=== PATIENT | male | born 1940 | race Caucasian/White ===

== ENCOUNTER 2023-10-28 11:29 | Emergency (ER) | payer MEDICARE, SELFPAY ==
[2023-10-28 11:31] VITALS: BP 155/88
[2023-10-28 11:40] VITALS: BP 165/88
[2023-10-28 12:00] VITALS: BP 152/80
--- NOTE | 2023-10-28 12:19 | ED.GENMED ---
History of Present Illness
General
Chief Complaint: Fall
Source: patient
Exam Limitations: none
Time Seen by Provider: 10/28/23 11:51
Travel History
Have you had any contact with someone who has COVID-19?: No
Do you have any symptoms of coronavirus? Fever > 100 degrees, chills, cough, shortness of breath, sore throat, loss of taste or smell, muscle aches, or headache?: No
History of Present Illness
History of Present Illness:
See MDM
Past History
Past History
ED Past Medical History: Arrthythmia (atrial fib,, SVT), Asthma, Cancer (Prostate CA, Skin ), GERD, Valvular disease and Other (Cellulitis, hypotension. Parkinson's disease, PNA ,Sleep apnea, )
ED Past Surgical History: None, Cardiac (Ablation), Orthopedic (Hip replacement X2 right, Left meniscus repair), Tonsilectomy, Urological (Vasectomy) and Other (Hernia repair, Cataracts, Lymph nodes removed left arm)
Patient has exhibited threatening behavior?: No
Social History
Tobacco: Non-smoker
Alcohol: None
Drug: None
Personal:
Living: fci ([place])
Employment: Retired
Phy Exam
Physical Exam
Physical Exam:
See MDM
Course
Vital Signs
Initial and Last Documented VS:
Initial Vital Signs
Temp Pulse Resp BP Pulse Ox
97.7 F 63 18 155/88 96
10/28/23 11:31 10/28/23 11:31 10/28/23 11:31 10/28/23 11:31 10/28/23 11:31
Last Documented Vital Signs
Temp Pulse Resp BP Pulse Ox
97.7 F 63 18 155/88 96
10/28/23 11:31 10/28/23 11:31 10/28/23 11:31 10/28/23 11:31 10/28/23 11:31
MDM/Problems Addressed
Differential Diagnosis Includes:
HPI and MDM Narrative:
83-year-old male presenting for evaluation of a fall. Patient states he did not fall. Patient states he slipped and slid down the wall. This occurred yesterday. Denies any trauma or injury. He states the doctor sent him into the emergency
department for evaluation.
Patient offers no complaints. No bony tenderness on exam. Patient appears to be at his baseline mental status. He is pleasant, cooperative and conversing without issues. I discussed that his doctor likely saw him in for blood work and CT head.
Patient acknowledges this but states 'this would be a waste of resources, time and money '
Physical exam
General: Well appearing and non-toxic
HEENT: protecting airway
Neck: supple
CV: No evidence of cyanosis
Resp: No accessory muscle use
Abd: Non-distended
Extremities: No deformities. Moving all 4 extremities. No bony tenderness. No hip tenderness
Neuro: alert
Psych: Normal affect
Skin: Intact
Problems Addressed including Acute and Chronic Conditions affecting care:
1. Fall
Acuity: acute
Prognosis: stable
Details: No evidence of trauma. Patient does not want any further testing done
Updates
Differential Diagnosis (but not limited to): Contusion, intracranial hemorrhage, dehydration, UTI
Testing considered: CT head and blood work
Drug therapy (if applicable): OTC meds, please see d/c instruction regarding Rx drugs
Amount and/or Complexity of Data Reviewed
Clinical info obtained from: Patient
External data reviewed: N/A
Labs I independently reviewed (but not limited to): N/A
Radiology: N/A
Pulse Ox: not hypoxic
EKG independently reviewed: N/A
Manager Meat: N/A
Critical Care: N/A
Risk of Complication:
Social Determinants of health: Good social support
Discussed with other providers: N/A
Escalation of Care includes Admit/Obs: After being observed in the Emergency Department, pt stable for discharge.
Occasional wrong word or 'sound a like' substitutions may have occurred due to the inherent limitations of voice recognition software. Read the chart carefully and recognize, using context, where substitutions have occurred.
*Critical Care Note
Total Time (30-74mins, 75-104mins- exclusive of procedures): Not Applicable
ED Attending Note
-
Portions of this chart may have been created with voice recognition software.� Occasional wrong word or��sound alike� substitutions may have occurred due to the inherent limitations of voice recognition software.
Discharge Plan
Departure
Patient Disposition: Home (Routine Discharge)
Date of Disposition: 10/28/23
Time of Disposition: 12:19
Patient with high blood pressure during this ER visit?: Yes
Discharge Problem:
Fall
Instructions: Preventing falls in adults, BLOOD PRESSURE
Prescriptions:
No Action
leuprolide 1 MG/0.2 ML kit
1 mg SC Q4M
ascorbic acid (vitamin C) [Vitamin C] 500 MG tablet
1,000 mg PO DAILY
Xarelto 20 MG tablet
20 mg PO QPM
midodrine 5 MG tablet
2.5 mg PO BIDPRN PRN (Reason: low bp pressure)
cholecalciferol (vitamin D3) [Vitamin D3] 400 UNITS tablet
400 units PO DAILY
Saccharomyces boulardii 250 MG capsule
250 mg PO WEEKLY
zinc gluconate 30 MG tablet
30 mg PO DAILY
multivitamin with folic acid [Tab-A-Jasvir] 1 TABLET tablet
1 tab PO DAILY
vitamin B complex-folic acid 0.4 MG tablet
0.4 mg PO DAILY
oxybutynin chloride 10 mg tablet extended release 24hr
10 mg PO [id number]
Patient Comments:
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
carbidopa-levodopa 25-100 mg tablet
1 tab PO BID@0800,1500
red yeast rice 600 mg Capsule
600 mg PO DAILY
Gocovri 137 mg capsule,extended release 24hr
137 mg PO HS
Ongentys 50 mg capsule
50 mg PO DAILY
amoxicillin 250 mg/5 mL Suspension For Reconstitution
500 mg PO TID Qty: 10 0RF
furosemide [Lasix] 40 mg tablet
40 mg PO DAILY 7 Days Qty: 7 0RF
Rx Instructions:
Take in the morning
Referrals:
Fabian Harp MD [Family Provider] -
Activity Restrictions/Additional Instructions:
Please return for any worsening symptoms.
You may return at any time if you have further concerns.
Please follow up with your doctor at the first available appointment, preferably this week.
Thank you for choosing [facility].
Interventions
Interventions:
*Risk Screen - Suicide Last Done: 10/28/23 11:40
*General Assessment Last Done: 10/28/23 11:31
*Neglect/Abuse Screening Last Done: 10/28/23 11:40
*ED COVID-19 Vaccine History Last Done: 10/28/23 11:31
[2023-10-28 13:00] VITALS: BP 165/88
[2023-10-28 13:16] VITALS: BP 165/88
== END 2023-10-28 14:29 | disposition home or self-care (01) ==
LOC: EMR 11:29
PROVIDERS: EMERGENCY PHYSICIAN Student in an Organized Health Care Education/Training Program; FAMILY PHYSICIAN Internal Medicine Geriatric Medicine
DX: Z04.89 Encounter for examination and observation for other specified reasons (principal); W19.XXXA Unspecified fall, initial encounter; I48.91 Unspecified atrial fibrillation; I47.10 Supraventricular tachycardia, unspecified; J45.909 Unspecified asthma, uncomplicated; K21.9 Gastro-esophageal reflux disease without esophagitis; I38 Endocarditis, valve unspecified; G20.A1 Parkinson's disease without dyskinesia, without mention of fluctuations; G47.30 Sleep apnea, unspecified; Z85.46 Personal history of malignant neoplasm of prostate
CPT/HCPCS: 99282

== ENCOUNTER → 2023-10-29 10:58 | Outpatient (REF) | payer MEDICARE, SELFPAY ==
[2023-10-29 11:32] LABS: % Basophils 0.4 % (0-2); % Eosinophils 6.2 % (0-6); % Immature Granulocytes 0.5 % (0-0.5); % Lymphocytes 22.3 % (20.5-51.1); % Monocytes 13.1 % (1.7-9.3); % Neutrophils 57.5 % (42.2-75.2); Absolute Eosinophils 0.5 10^3/uL (0-0.7); Absolute Lymphocytes 1.7 10^3/uL (1.2-3.4); Absolute Neutrophils 4.4 10^3/uL (1.4-6.5); Hematocrit 35.5 % (39.0-52.0); Hemoglobin 11.8 g/dL (13.0-18.0); Mean Corp Hgb Conc. 33.2 g/dL (33.0-37.0); Mean Corpuscular Hgb 27.8 pg (27.0-31.0); Mean Corpuscular Volume 83.7 fL (80.0-94.0); Mean Platelet Volume 10.5 fL (7.4-10.4); Nucleated Red Blood Cells % 0 % (-); Platelet Count 298 10^3/uL (130-400); Red Blood Cell Count 4.24 10^6/uL (4.70-6.10); Red Cell Dist. Width 15.9 % (11.5-14.5); White Blood Cell Count 7.6 10^3/uL (4.8-10.8)
[2023-10-29 11:42] LABS: ALT (SGPT) 22 U/L (0-50); AST (SGOT) 12 U/L (17-59); Albumin 3.8 g/dl (3.5-5.0); Alkaline Phosphatase 115 U/L (38-126); Blood Urea Nitrogen 22 mg/dl (9-20); Calcium 9.4 mg/dl (8.4-10.2); Carbon Dioxide 26 mmol/L (22-30); Chloride 106 mmol/L (98-107); Glucose 89 mg/dl (70-99); Iron 67 ug/dl (49-181); Sodium 135 mmol/L (135-145); Total Bilirubin 0.6 mg/dl (0.2-1.3); Total Protein 6.4 g/dl (6.3-8.2); eGFR > 60.00
[2023-10-29 11:52] LABS: Percent Saturation 20 % (20-50); Total Iron Binding Capacity 335 ug/dl (261-462)
[2023-10-29 12:13] LABS: PSA, Total - Screen 3.15 ng/ml (0.0-4.0)
[2023-10-29 12:17] LABS: Ferritin 11.9 ng/ml (17.9-464.0)
[2023-10-29 12:49] LABS: Folate > 20.0 ng/ml (2.76-20); Vitamin B12 641 pg/ml (239-931)
== END ==
LOC: OLABWHC 10:58
PROVIDERS: ATTENDING PHYSICIAN Internal Medicine Gastroenterology; FAMILY PHYSICIAN Internal Medicine Geriatric Medicine
DX: D50.0 Iron deficiency anemia secondary to blood loss (chronic) (principal)
CPT/HCPCS: 36415; 80053; 82607; 82728; 82746; 83540; 83550; 85025; G0103

== ENCOUNTER → 2023-11-01 09:24 | Outpatient (REF) | payer MEDICARE, SELFPAY ==
[2023-11-01 11:09] LABS: PSA, Total - Diagnostic 2.84 ng/ml (0.0-4.0)
== END ==
LOC: OLABWPC 09:24
PROVIDERS: ATTENDING PHYSICIAN Internal Medicine Geriatric Medicine
DX: C61 Malignant neoplasm of prostate (principal)
CPT/HCPCS: 36415; 84153

== ENCOUNTER 2023-11-17 16:55 | Emergency (ER) | payer MEDICARE, SELFPAY ==
[2023-11-17] VITALS (10 sets, daily range): BP systolic 146–200; BP diastolic 85–105; BMI 26.2
[2023-11-17 17:18] LABS: % Basophils 0.3 % (0-2); % Eosinophils 4.5 % (0-6); % Immature Granulocytes 0.4 % (0-0.5); % Lymphocytes 21.2 % (20.5-51.1); % Monocytes 12.7 % (1.7-9.3); % Neutrophils 60.9 % (42.2-75.2); Absolute Eosinophils 0.4 10^3/uL (0-0.7); Absolute Monocytes 1.2 10^3/uL (0.1-0.6); Absolute Neutrophils 5.7 10^3/uL (1.4-6.5); Hematocrit 38.6 % (39.0-52.0); Hemoglobin 12.7 g/dL (13.0-18.0); Mean Corp Hgb Conc. 32.9 g/dL (33.0-37.0); Mean Corpuscular Hgb 28.4 pg (27.0-31.0); Mean Corpuscular Volume 86.4 fL (80.0-94.0); Mean Platelet Volume 9.5 fL (7.4-10.4); Nucleated Red Blood Cells % 0 % (-); Platelet Count 261 10^3/uL (130-400); Red Blood Cell Count 4.47 10^6/uL (4.70-6.10); White Blood Cell Count 9.3 10^3/uL (4.8-10.8)
[2023-11-17 17:45] LABS: ALT (SGPT) 13 U/L (0-50); AST (SGOT) 13 U/L (17-59); Albumin 3.9 g/dl (3.5-5.0); Alkaline Phosphatase 122 U/L (38-126); Blood Urea Nitrogen 29 mg/dl (9-20); Carbon Dioxide 26 mmol/L (22-30); Chloride 102 mmol/L (98-107); Estimated Creatinine Clearance 69 ml/min; Glucose 98 mg/dl (70-99); Potassium 4.3 mmol/L (3.5-5.1); Sodium 135 mmol/L (135-145); Total Bilirubin 0.5 mg/dl (0.2-1.3); Total Protein 6.7 g/dl (6.3-8.2); eGFR > 60.00
--- NOTE | 2023-11-17 19:49 | ED.GENMED ---
History of Present Illness
General
Chief Complaint: Blood Pressure Problem
Source: patient
Exam Limitations: none
Time Seen by Provider: 11/17/23 19:15
Nursing documentation reviewed up to this point in time: agreed with
Travel History
Have you had any contact with someone who has COVID-19?: No
Do you have any symptoms of coronavirus? Fever > 100 degrees, chills, cough, shortness of breath, sore throat, loss of taste or smell, muscle aches, or headache?: No
History of Present Illness
History of Present Illness:
Patient with history of hypotension on midodrine, presents to ED from long term secondary to sudden onset of chest pain around 3:30 PM this afternoon. Chest pain described as achy, across his chest, without any alleviating or exacerbating
factors. Patient states that chest pain started approxi-1 hour, with spontaneous resolution. Since then, patient has not had recurrent chest pain. Interestingly, patient takes midodrine secondary to hypotension, was noted to have elevated blood
pressure by paramedics when arrived at scene. Patient denies associated shortness of breath or nausea. Denies diaphoresis. Denies leg pain or swelling. Denies back pain. Denies recent travel or surgery. Patient has had history of atrial
fibrillation in the past. However, patient current does not take any blood thinning medications.
Past History
Past History
ED Past Medical History: Arrthythmia (atrial fib,, SVT), Asthma, Cancer (Prostate CA, Skin ), GERD, Valvular disease and Other (Cellulitis, hypotension. Parkinson's disease, PNA ,Sleep apnea, )
ED Past Surgical History: None, Cardiac (Ablation), Orthopedic (Hip replacement X2 right, Left meniscus repair), Tonsilectomy, Urological (Vasectomy) and Other (Hernia repair, Cataracts, Lymph nodes removed left arm)
Patient has exhibited threatening behavior?: No
Social History
Tobacco: Non-smoker
Alcohol: None
Drug: None
Personal:
Living: long term ([place])
Employment: Retired
Review of Systems
Review of Systems
Allergies reviewed?: Yes
All Other Systems: ROS reviewed and negative except as documented in HPI and ROS
Constitutional: Reports no symptoms
EENT: Reports no symptoms
Respiratory: Reports no symptoms; Denies trouble breathing
Cardiac: Reports chest pain; Denies diaphoresis, palpitations or syncope
ABD/GI: Reports no symptoms; Denies nausea
Musculoskeletal: Reports no symptoms
Skin: Reports no symptoms
Neurological: Reports no symptoms; Denies dizzy, headache or weakness
Phy Exam
Physical Exam
Physical Exam:
Physical Exam
General: no apparent distress, not acutely ill. afebrile. hypertensive.
Head: nc/at. eomi
Neck: supple. no meningeal signs.
Heart: s1/s2 regular rate and rhythm, no murmur. equal radial pulses.
Lungs: no acute respiratory distress. clear bilaterally
Abdomen: normal bowel sounds. not tender.
Neuro: alert and oriented. no focal neurological deficits
Skin: no rash
Psychiatric: well kept. interactive and cooperative
Extremities: no edema. no calf tenderness.
Scores
Heart Score for Chest Pain Patients
STEMI patient?: No
History: Slightly or Non-Suspicious
ECG: Normal
Age: >/= 65 years
Risk Factors: No Risk Factors
Troponin: </= Normal Limit
Heart Score for Chest Pain Patients: 2
Heart Score Risk: 2.5% MACE over next 6 weeks
Course
Orders/Labs/Results
Orders:
Orders
11/17/23 17:02
EKG [Electrocardiogram (*1)] Urgent
Reason for Study: CAD
EKG- Treatment ONCE
11/17/23 17:10
Complete Blood Count/With Diff Urgent
Comprehensive Metabolic Panel Urgent
Creatine Phosphokinase Urgent
Comment: ADD ON
Magnesium Urgent
Comment: ADD ONM
NT-proBNP Urgent
Comment: ADD ON
11/17/23 19:38
CR Chest - 2 Views Urgent
Comment:
Reason For Exam: chest pain
11/17/23 19:42
Troponin I Urgent
11/17/23 22:04
Electrocardiogram (*1) Urgent
Reason for Study: Chest Pain
EKG- Treatment ONCE
11/17/23 22:34
Troponin I Urgent
Abnormal Lab Results
11/17/23
17:10
RBC 4.47 L 10^6/uL
(4.70-6.10)
Hgb 12.7 L g/dL
(13.0-18.0)
Hct 38.6 L %
(39.0-52.0)
MCHC 32.9 L g/dL
(33.0-37.0)
RDW 15.0 H %
(11.5-14.5)
Absolute Monos (auto) 1.2 H 10^3/uL
(0.1-0.6)
Monocytes % 12.7 H %
(1.7-9.3)
BUN 29 H mg/dl
(9-20)
AST 13 L U/L
(17-59)
Creatine Kinase 53 L U/L
(55-170)
11/17/23 17:10
11/17/23 17:10
Vital Signs
Initial and Last Documented VS:
Initial Vital Signs
BP
164/85
11/17/23 16:57
Last Documented Vital Signs
Temp Pulse Resp BP Pulse Ox
97.9 F 58 16 146/87 98
11/17/23 16:58 11/17/23 23:45 11/17/23 23:45 11/17/23 23:00 11/17/23 23:45
MDM/Problems Addressed
MDM/Problems Addressed:
Per daughter, due to patient's parkinson's disease, he has had transient episodes of hypertension in the patient.
Patient remains chest pain-free during extended course of observation ED, along with unremarkable workup, including blood work, EKG, and chest x-ray. As patient with typically low blood pressure, it is quite possible that sudden rise in his blood
pressure today may have contributed to his chest pain symptoms. However, patient is without any risk factors for ACS, nor symptoms consistent with ACS. As such, patient will be discharged home. 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
Marylu, as an outpatient. Advised to return to ED with worsening symptoms.
*EKG
Interpreted by ED Provider?: Yes
EKG Intrepretation Date: 11/17/23
Heart Rate: 70
Rate: normal
Rhythm: sinus
[place]: left axis deviation
Interval: first degree heart block
QRS Pattern: normal QRS
*Critical Care Note
Total Time (30-74mins, 75-104mins- exclusive of procedures): Not Applicable
ED Attending Note
-
Portions of this chart may have been created with voice recognition software.� Occasional wrong word or��sound alike� substitutions may have occurred due to the inherent limitations of voice recognition software.
Discharge Plan
Departure
Patient Disposition: Home (Routine Discharge)
Date of Disposition: 11/17/23
Time of Disposition: 23:31
Patient with high blood pressure during this ER visit?: Yes
Discharge Problem:
Chest pain
Instructions: Chest Pain (DC)
Prescriptions:
No Action
ascorbic acid (vitamin C) [Vitamin C] 500 MG tablet
1,000 mg PO DAILY
Saccharomyces boulardii 250 MG capsule
250 mg PO DAILY
zinc gluconate 30 MG tablet
30 mg PO DAILY
multivitamin with folic acid [Tab-A-Jasvir] 1 TABLET tablet
1 tab PO DAILY
carbidopa-levodopa 25-100 mg tablet
1 tab PO BID@1200,1600
red yeast rice 600 mg Capsule
600 mg PO DAILY
Gocovri 137 mg capsule,extended release 24hr
137 mg PO HS
Ongentys 50 mg capsule
50 mg PO DAILY
acetaminophen 325 mg Tablet
650 mg PO Q6H PRN (Reason: mild pain/temp>100F)
aspirin 81 mg Tablet,Delayed Release (Dr/Ec)
81 mg PO DAILY
methenamine hippurate 1 gram Tablet
1 g PO BID
magnesium hydroxide [Milk of Magnesia] 400 mg/5 mL Suspension
30 ml PO DAILY PRN (Reason: if no bm x 2 days)
bisacodyl [Dulcolax (bisacodyl)] 10 mg Suppository
10 mg NE DAILY PRN (Reason: if no bm x 3 days)
Fleet Enema 19-7 gram/118 mL Enema
118 ml NE DAILY PRN (Reason: if no bm x 4 days)
vitamin B complex [B-50 Complex] Tablet
1 tab PO DAILY
magnesium 250 mg Tablet
250 mg PO DAILY
carbidopa-levodopa 25-100 mg tablet
2 tab PO DAILY
doxycycline hyclate 100 mg tablet
100 mg PO HS
midodrine 10 mg Tablet
5 mg PO DAILY@1400
Rx Instructions:
afternoon
midodrine 10 mg Tablet
5 mg PO QPM
Rx Instructions:
*HOLD FOR SBP OVER 136*
cholecalciferol (vitamin D3) [Vitamin D3] 25 mcg (1,000 unit) Tablet
25 mcg PO DAILY
Misc Natural Products
1 cap PO DAILY
Rx Instructions:
Mycobotanicals brain
Ubiquinol
100 mg PO DAILY@1400
Rx Instructions:
afternoon
Referrals:
Fabian Harp MD [Family Provider] -
Danielle Valero DO [Active] -
Activity Restrictions/Additional Instructions:
As discussed, please follow-up with your primary care physician and/or derrick boat leverman for further evaluation and treatment. Please return to ED with recurrent chest pain.
Interventions
Interventions:
*Risk Screen - Suicide Last Done: 11/17/23 17:00
*General Assessment Last Done: 11/17/23 17:00
*Neglect/Abuse Screening Last Done: 11/17/23 17:00
ED- Fall Risk Assessment Last Done: 11/17/23 17:00
*ED COVID-19 Vaccine History Last Done: 11/17/23 16:59
*Nursing Disposition Last Done: 11/18/23 00:02
ED- Cardiac Assessment Last Done: 11/17/23 18:07
ED- Neurological Assessment Last Done: 11/17/23 18:07
ED- Pulmonary Assessment Last Done: 11/17/23 18:07
Discharge Date and Time
Discharge Date/Time: 11/18/23 00:03
[2023-11-17 20:21] LABS: Troponin I < 0.012 ng/ml
[2023-11-17 22:40] LABS: NT-proBNP 231 pg/ml
[2023-11-17 22:51] LABS: Creatine Phosphokinase 53 U/L (55-170)
[2023-11-17 23:03] LABS: Troponin I < 0.012 ng/ml
== END 2023-11-18 00:03 | disposition home or self-care (01) ==
LOC: EMR 16:55
PROVIDERS: Emergency Medicine; EMERGENCY PHYSICIAN Emergency Medicine; FAMILY PHYSICIAN Internal Medicine Geriatric Medicine
DX: R07.9 Chest pain, unspecified (principal); R03.0 Elevated blood-pressure reading, without diagnosis of hypertension; G20.A1 Parkinson's disease without dyskinesia, without mention of fluctuations
CPT/HCPCS: 99285; 71046; 80053; 82550; 83735; 83880; 84484; 85025; 93005

== ENCOUNTER → 2024-01-05 09:42 | Outpatient (REF) | payer MEDICARE, SELFPAY ==
[2024-01-05 10:57] LABS: Urine Albumin Negative (Neg - Trace); Urine Bilirubin Negative (Negative); Urine Character Clear (Clear); Urine Color Yellow; Urine Glucose Negative (Negative); Urine Ketone Negative (Negative); Urine Leukocyte Negative (Negative); Urine Nitrite Negative (Negative); Urine Occult Blood Negative (Negative); Urine Specific Gravity 1.015 (<1.030); Urine Urobilinogen Negative (Neg - 1+); Urine pH 6.5 (5.0-9.0)
== END ==
LOC: OLABWIL 09:42
PROVIDERS: ATTENDING PHYSICIAN Internal Medicine Geriatric Medicine
DX: R41.82 Altered mental status, unspecified (principal)
CPT/HCPCS: 81003

== ENCOUNTER 2024-02-06 10:28 | Emergency (ER) | payer MEDICARE, SELFPAY ==
[2024-02-06] VITALS (9 sets, daily range): BP systolic 117–206; BP diastolic 75–104; BMI 26.9
--- NOTE | 2024-02-06 10:45 | ED.GENMED ---
History of Present Illness
General
Chief Complaint: Back Pain
Source: patient
Time Seen by Provider: 02/06/24 10:34
Nursing documentation reviewed up to this point in time: agreed with
History of Present Illness
History of Present Illness:
Patient is an 83-year-old male from [facility] living with past medical history of hypertension, Parkinson's prostate cancer A-fib who presents to the ER for evaluation. Patient reports he urinated 5 times throughout the night and then went
in his depend but urinated through his depends into the bed. He woke up with a wet bed and order that he did not sleep in the bed he slept on the floor. This morning he called staff and they assisted him up. He reports he has been urinating more
frequently he had an outpatient urine culture and UA done which was negative but he continues to urinate frequently. He has been drinking however a lot of water because they told him to do so. He has no other complaints. Triage report initially
noted the patient complained of low back pain but patient denies any pain.
Patient had no actual fall/trauma. He denies any chest pain shortness of breath abdominal nausea vomiting fever chills
Past History
Past History
ED Past Medical History: Arrthythmia (atrial fib,, SVT), Asthma, Cancer (Prostate CA, Skin ), GERD, Valvular disease and Other (Cellulitis, hypotension. Parkinson's disease, PNA ,Sleep apnea, )
ED Past Surgical History: None, Cardiac (Ablation), Orthopedic (Hip replacement X2 right, Left meniscus repair), Tonsilectomy, Urological (Vasectomy) and Other (Hernia repair, Cataracts, Lymph nodes removed left arm)
Patient has exhibited threatening behavior?: No
Social History
Tobacco: Non-smoker
Alcohol: None
Drug: None
Personal:
Living: [facility] ([place])
Employment: Retired
Review of Systems
Review of Systems
Allergies reviewed?: Yes
All Other Systems: ROS reviewed and negative except as documented in HPI and ROS
Constitutional: Reports no symptoms; Denies fever, fatigue or chills
Respiratory: Reports no symptoms
Cardiac: Reports no symptoms
ABD/GI: Reports no symptoms; Denies abdominal pain, nausea, vomiting or diarrhea
: Reports frequency
Musculoskeletal: Reports no symptoms
Skin: Reports no symptoms
Neurological: Reports no symptoms
Psychiatric: Reports no symptoms
Phy Exam
General Physical Exam
General Presentation: no apparent distress
General age: appears stated age
General Skin: warm and dry
General Habitus: normal
General Mental: alert
General Hydration: appears well hydrated
Cardiovascular Exam
Cardiovascular Exam: regular rate/rhythm, no murmur and normal peripheral pulses
Pulmonary Exam
Pulmonary Exam: lungs clear and no respiratory distress
Gastrointestinal Exam
Gastrointestinal Exam: non tender and soft
Neurological Exam
Neurological Exam: alert and oriented x3
Musculoskeletal Exam
Musculoskeletal Exam: full ROM
Skin Exam
Skin Exam: normal color and warm/dry
Psychiatric Exam
Psychiatric Exam: normal mood/affect
Course
Orders/Labs/Results
Orders:
Orders
02/06/24 11:00
Complete Blood Count/With Diff Urgent
Comprehensive Metabolic Panel Urgent
Urinalysis Reflex To Culture Urgent
Date Specimen was Collected: 02/06/24
Time Specimen was Collected: 10:52
Urine Microscopic Reflex Cult Urgent
02/06/24 13:53
0.9% Sodium Chloride 500 ml [Nss] 500 ml IV BOLUS
Abnormal Lab Results
02/06/24
11:00
Absolute Monos (auto) 1.0 H 10^3/uL
(0.1-0.6)
Monocytes % 11.6 H %
(1.7-9.3)
BUN 30 H mg/dl
(9-20)
Calcium 10.4 H mg/dl
(8.4-10.2)
AST 14 L U/L
(17-59)
Ur Occult Blood Reflex 1+ A
(Negative)
Urine RBC 3-6 A /HPF
(0-2)
02/06/24 11:00
02/06/24 11:00
Vital Signs
Initial and Last Documented VS:
Initial Vital Signs
Pulse Resp BP Pulse Ox
67 18 206/104 99
02/06/24 10:37 02/06/24 10:37 02/06/24 10:37 02/06/24 10:37
Last Documented Vital Signs
Temp Pulse Resp BP Pulse Ox
98.4 F 70 20 167/91 100
02/06/24 10:38 02/06/24 15:16 02/06/24 15:16 02/06/24 15:16 02/06/24 15:16
MDM/Problems Addressed
Differential Diagnosis Includes:
Not limited to UTI dehydration
MDM/Problems Addressed:
Patient is an 83-year-old male from [facility]. Patient has his own apartment and urinated and did not want to sleep in the bed so he slept on the floor. He presented to the ER for evaluation. He presents awake alert no
acute distress he has no complaints of any injury. He did not fall. Patient's blood pressure is elevated and he normally does not have a history of elevated blood pressure however he is asymptomatic denies any headache denies any blurred vision
chest pain shortness of breath. Patient is afebrile stable hemoglobin BUN elevated however has been elevated in the past. Patient was given small bolus of fluids and ate a sandwich drank fluids here in the ER. Patient had no complaints in the ER.
Straight cath done and negative. Patient is amatory with his walker he does have a history of Parkinson's and is slow but steady.
Will plan for discharge home with close outpatient follow-up family doctor for reevaluation of blood pressure
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 Patient however has an
appointment family doctor on Wednesday and 3 days.
Chronic conditions affecting care:
Parkinson's walks with a walker
*Critical Care Note
Total Time (30-74mins, 75-104mins- exclusive of procedures): Not Applicable
ED Attending Note
-
Portions of this chart may have been created with voice recognition software.� Occasional wrong word or��sound alike� substitutions may have occurred due to the inherent limitations of voice recognition software.
Discharge Plan
Departure
Patient Disposition: Home (Routine Discharge)
Date of Disposition: 02/06/24
Time of Disposition: 15:12
Patient with high blood pressure during this ER visit?: Yes
Covid-19: Not Applicable
Discharge Problem:
elevated blood pressure
Instructions: High Blood Pressure (DC), BLOOD PRESSURE
Prescriptions:
No Action
ascorbic acid (vitamin C) [Vitamin C] 500 MG tablet
1,000 mg PO DAILY
Saccharomyces boulardii 250 MG capsule
250 mg PO DAILY
zinc gluconate 30 MG tablet
30 mg PO DAILY
multivitamin with folic acid [Tab-A-Jasvir] 1 TABLET tablet
1 tab PO DAILY
carbidopa-levodopa 25-100 mg tablet
1 tab PO BID@1200,1600
red yeast rice 600 mg Capsule
600 mg PO DAILY
Gocovri 137 mg capsule,extended release 24hr
137 mg PO HS
Ongentys 50 mg capsule
50 mg PO DAILY
acetaminophen 325 mg Tablet
650 mg PO Q6H PRN (Reason: mild pain/temp>100F)
aspirin 81 mg Tablet,Delayed Release (Dr/Ec)
81 mg PO DAILY
methenamine hippurate 1 gram Tablet
1 g PO BID
magnesium hydroxide [Milk of Magnesia] 400 mg/5 mL Suspension
30 ml PO DAILY PRN (Reason: if no bm x 2 days)
bisacodyl [Dulcolax (bisacodyl)] 10 mg Suppository
10 mg LA DAILY PRN (Reason: if no bm x 3 days)
Fleet Enema 19-7 gram/118 mL Enema
118 ml LA DAILY PRN (Reason: if no bm x 4 days)
vitamin B complex [B-50 Complex] Tablet
1 tab PO DAILY
magnesium 250 mg Tablet
250 mg PO DAILY
carbidopa-levodopa 25-100 mg tablet
2 tab PO DAILY
doxycycline hyclate 100 mg tablet
100 mg PO HS
midodrine 10 mg Tablet
5 mg PO DAILY@1400
Rx Instructions:
afternoon
midodrine 10 mg Tablet
5 mg PO QPM
Rx Instructions:
*HOLD FOR SBP OVER 136*
cholecalciferol (vitamin D3) [Vitamin D3] 25 mcg (1,000 unit) Tablet
25 mcg PO DAILY
Misc Natural Products
1 cap PO DAILY
Rx Instructions:
Mycobotanicals brain
Ubiquinol
100 mg PO DAILY@1400
Rx Instructions:
afternoon
Referrals:
Fabian Harp MD [Family Provider] -
Activity Restrictions/Additional Instructions:
Follow-up with family doctor in the next 1 to 2 days for reevaluation of your blood pressure was elevated here in the ER. Be sure to increase fluids
Return to the ER if any worsening of symptoms
Interventions
Interventions:
*Risk Screen - Suicide Last Done: 02/06/24 10:38
*General Assessment Last Done: 02/06/24 10:38
*Neglect/Abuse Screening Last Done: 02/06/24 10:38
ED- Fall Risk Assessment Last Done: 02/06/24 10:38
*ED COVID-19 Vaccine History Last Done: 02/06/24 10:38
ED- Cardiac Assessment Last Done: 02/06/24 10:38
ED-Male Genitourinary Assessment Last Done: 02/06/24 10:52
ED-Musculoskeletal Assessment Last Done: 02/06/24 10:52
ED- Neurological Assessment Last Done: 02/06/24 10:38
ED- Pulmonary Assessment Last Done: 02/06/24 10:38
Discharge Date and Time
Print Language: BRAZILIAN
[2024-02-06 11:12] LABS: % Basophils 0.3 % (0-2); % Eosinophils 4.4 % (0-6); % Immature Granulocytes 0.5 % (0-0.5); % Monocytes 11.6 % (1.7-9.3); % Neutrophils 62.2 % (42.2-75.2); Absolute Eosinophils 0.4 10^3/uL (0-0.7); Absolute Lymphocytes 1.9 10^3/uL (1.2-3.4); Absolute Neutrophils 5.5 10^3/uL (1.4-6.5); Hematocrit 40.5 % (39.0-52.0); Hemoglobin 13.9 g/dL (13.0-18.0); Mean Corp Hgb Conc. 34.3 g/dL (33.0-37.0); Mean Corpuscular Hgb 29.3 pg (27.0-31.0); Mean Corpuscular Volume 85.3 fL (80.0-94.0); Mean Platelet Volume 9.4 fL (7.4-10.4); Nucleated Red Blood Cells % 0 % (-); Platelet Count 280 10^3/uL (130-400); Red Blood Cell Count 4.75 10^6/uL (4.70-6.10); Red Cell Dist. Width 14.5 % (11.5-14.5); White Blood Cell Count 8.9 10^3/uL (4.8-10.8)
[2024-02-06 11:32] LABS: ALT (SGPT) 32 U/L (0-50); AST (SGOT) 14 U/L (17-59); Albumin 4.4 g/dl (3.5-5.0); Alkaline Phosphatase 120 U/L (38-126); Blood Urea Nitrogen 30 mg/dl (9-20); Calcium 10.4 mg/dl (8.4-10.2); Carbon Dioxide 28 mmol/L (22-30); Chloride 103 mmol/L (98-107); Estimated Creatinine Clearance 69 ml/min; Glucose 94 mg/dl (70-99); Potassium 4.5 mmol/L (3.5-5.1); Sodium 135 mmol/L (135-145); Total Bilirubin 0.6 mg/dl (0.2-1.3); Total Protein 7.3 g/dl (6.3-8.2); eGFR > 60.00
[2024-02-06 11:56] LABS: Urine Albumin Negative (Neg - Trace); Urine Bilirubin Negative (Negative); Urine Character Clear (Clear); Urine Color Yellow; Urine Glucose Negative (Negative); Urine Ketone Negative (Negative); Urine Leukocyte Negative (Negative); Urine Nitrite Negative (Negative); Urine Occult Blood 1+ (Negative); Urine Urobilinogen Negative (Neg - 1+)
[2024-02-06] MEDS: NSS 500 IV (14:09)
== END 2024-02-06 16:02 | disposition home or self-care (01) ==
LOC: EMR 10:28
PROVIDERS: Nurse Practitioner; EMERGENCY PHYSICIAN Emergency Medicine; FAMILY PHYSICIAN Internal Medicine Geriatric Medicine
DX: I10 Essential (primary) hypertension (principal); G20.A1 Parkinson's disease without dyskinesia, without mention of fluctuations; G47.30 Sleep apnea, unspecified; I48.91 Unspecified atrial fibrillation; J45.909 Unspecified asthma, uncomplicated; K21.9 Gastro-esophageal reflux disease without esophagitis; Z60.2 Problems related to living alone; Z85.46 Personal history of malignant neoplasm of prostate; Z98.890 Other specified postprocedural states
CPT/HCPCS: 99283; 96360; 80053; 81003; 81015; 85025

== ENCOUNTER 2024-02-17 05:05 | Emergency (ER) | payer MEDICARE, SELFPAY ==
[2024-02-17 05:06] VITALS: BMI 26.7
[2024-02-17 05:17] VITALS: BP 146/77
--- NOTE | 2024-02-17 07:04 | ED.GENMED ---
History of Present Illness
General
Chief Complaint: Fall
Source: patient
Exam Limitations: none
Time Seen by Provider: 02/17/24 06:03
Travel History
Have you had any contact with someone who has COVID-19?: No
Do you have any symptoms of coronavirus? Fever > 100 degrees, chills, cough, shortness of breath, sore throat, loss of taste or smell, muscle aches, or headache?: No
History of Present Illness
History of Present Illness:
84-year-old male who presents after he was found on the floor next to his bed. It is suspected he hit his head on the bedside table. Patient on my evaluation denies any complaints. He specifically denies neck pain or back pain. Does have history
of Parkinson's disease. Presents from [facility]. No reported vomiting. Is not anticoagulated
Past History
Past History
ED Past Medical History: Arrthythmia (atrial fib,, SVT), Asthma, Cancer (Prostate CA, Skin ), GERD, Valvular disease and Other (Cellulitis, hypotension. Parkinson's disease, PNA ,Sleep apnea, )
ED Past Surgical History: None, Cardiac (Ablation), Orthopedic (Hip replacement X2 right, Left meniscus repair), Tonsilectomy, Urological (Vasectomy) and Other (Hernia repair, Cataracts, Lymph nodes removed left arm)
Patient has exhibited threatening behavior?: No
Social History
Tobacco: Non-smoker
Alcohol: None
Drug: None
Personal:
Living: alf ([place])
Employment: Retired
Phy Exam
Physical Exam
Physical Exam:
CONSTITUTIONAL Patient alert and oriented to person, place. Well-appearing. Vital signs reviewed.
HEAD atraumatic, normocephalic.
EYES eyelids normal to inspection, Extraocular muscles intact, Conjunctiva normal, Sclera normal.
NECK normal range of motion, Trachea midline, no jugular venous distention. no midline TTP
RESPIRATORY CHEST No respiratory distress noted, Chest expansion equal
ABDOMEN No distention.
BACK normal inspection, no obvious deformities
UPPER EXTREMITY range of motion normal, Motor strength normal, no cyanosis, no edema.
LOWER EXTREMITY range of motion normal, Motor strength normal, no cyanosis, no edema.
NEURO Speech normal, No focal motor deficits, Cranial Nerves intact to screening exam.
SKIN skin warm, dry, and normal in color.
Course
Orders/Labs/Results
Orders:
Orders
02/17/24 06:03
CT Head W/o Iv Contrast Urgent
Comment:
Reason For Exam: fall
Vital Signs
Initial and Last Documented VS:
Initial Vital Signs
Temp Pulse Resp BP Pulse Ox
97.7 F 66 18 146/77 98
02/17/24 05:17 02/17/24 05:17 02/17/24 05:17 02/17/24 05:17 02/17/24 05:17
Last Documented Vital Signs
Temp Pulse Resp BP Pulse Ox
97.7 F 66 18 146/77 98
02/17/24 05:17 02/17/24 05:17 02/17/24 05:17 02/17/24 05:17 02/17/24 05:17
MDM/Problems Addressed
MDM/Problems Addressed:
fall, chronic parkinsons
*Radiology
Radiology exam reviewed: radiology read reviewed
*Pulse Oximetry
Patient hypoxic: no
*Critical Care Note
Total Time (30-74mins, 75-104mins- exclusive of procedures): Not Applicable
Data Reviewed
Further Testing Considered But Not Given:
Consider CT imaging but no midline tenderness
Patient Management
Escalation/DeEscalation of care consider admission/obs:
Imaging negative. Patient resting comfortably. No focal deficits. Okay for discharge
ED Attending Note
-
Portions of this chart may have been created with voice recognition software.� Occasional wrong word or��sound alike� substitutions may have occurred due to the inherent limitations of voice recognition software.
Discharge Plan
Departure
Patient Disposition: Home (Routine Discharge)
Date of Disposition: 02/17/24
Time of Disposition: 07:30
Patient with high blood pressure during this ER visit?: Yes
Discharge Problem:
Fall, Minor head injury
Prescriptions:
No Action
ascorbic acid (vitamin C) [Vitamin C] 500 MG tablet
1,000 mg PO DAILY
Saccharomyces boulardii 250 MG capsule
250 mg PO DAILY
zinc gluconate 30 MG tablet
30 mg PO DAILY
multivitamin with folic acid [Tab-A-Jasvir] 1 TABLET tablet
1 tab PO DAILY
carbidopa-levodopa 25-100 mg tablet
1 tab PO BID@1200,1600
red yeast rice 600 mg Capsule
600 mg PO DAILY
Gocovri 137 mg capsule,extended release 24hr
137 mg PO HS
Ongentys 50 mg capsule
50 mg PO DAILY
acetaminophen 325 mg Tablet
650 mg PO Q6H PRN (Reason: mild pain/temp>100F)
aspirin 81 mg Tablet,Delayed Release (Dr/Ec)
81 mg PO DAILY
methenamine hippurate 1 gram Tablet
1 g PO BID
magnesium hydroxide [Milk of Magnesia] 400 mg/5 mL Suspension
30 ml PO DAILY PRN (Reason: if no bm x 2 days)
bisacodyl [Dulcolax (bisacodyl)] 10 mg Suppository
10 mg AK DAILY PRN (Reason: if no bm x 3 days)
Fleet Enema 19-7 gram/118 mL Enema
118 ml AK DAILY PRN (Reason: if no bm x 4 days)
vitamin B complex [B-50 Complex] Tablet
1 tab PO DAILY
magnesium 250 mg Tablet
250 mg PO DAILY
carbidopa-levodopa 25-100 mg tablet
2 tab PO DAILY
doxycycline hyclate 100 mg tablet
100 mg PO HS
midodrine 10 mg Tablet
5 mg PO DAILY@1400
Rx Instructions:
afternoon
midodrine 10 mg Tablet
5 mg PO QPM
Rx Instructions:
*HOLD FOR SBP OVER 136*
cholecalciferol (vitamin D3) [Vitamin D3] 25 mcg (1,000 unit) Tablet
25 mcg PO DAILY
Misc Natural Products
1 cap PO DAILY
Rx Instructions:
Mycobotanicals brain
Ubiquinol
100 mg PO DAILY@1400
Rx Instructions:
afternoon
Referrals:
Fabian Harp MD [Family Provider] -
Interventions
Interventions:
*Risk Screen - Suicide Last Done: 02/17/24 05:17
*General Assessment Last Done: 02/17/24 05:17
*Neglect/Abuse Screening Last Done: 02/17/24 05:17
ED-Musculoskeletal Assessment Last Done: 02/17/24 05:36
ED- Neurological Assessment Last Done: 02/17/24 05:36
ED-Skin Assessment Last Done: 02/17/24 05:36
Discharge Date and Time
Print Language: PERSIAN
[2024-02-17 10:30] VITALS: BP 119/72
== END 2024-02-17 11:20 | disposition home or self-care (01) ==
LOC: EMR 05:05
PROVIDERS: EMERGENCY PHYSICIAN Emergency Medicine; FAMILY PHYSICIAN Internal Medicine Geriatric Medicine
DX: S09.90XA Unspecified injury of head, initial encounter (principal); W19.XXXA Unspecified fall, initial encounter; R03.0 Elevated blood-pressure reading, without diagnosis of hypertension; G20.A1 Parkinson's disease without dyskinesia, without mention of fluctuations; J45.909 Unspecified asthma, uncomplicated; I47.10 Supraventricular tachycardia, unspecified; G47.30 Sleep apnea, unspecified; K21.9 Gastro-esophageal reflux disease without esophagitis; I38 Endocarditis, valve unspecified; I48.91 Unspecified atrial fibrillation; Z85.46 Personal history of malignant neoplasm of prostate; Z85.828 Personal history of other malignant neoplasm of skin; Z87.01 Personal history of pneumonia (recurrent); Z96.642 Presence of left artificial hip joint
CPT/HCPCS: 99284; 70450

== ENCOUNTER → 2024-02-23 10:38 | Outpatient (REF) | payer MEDICARE, SELFPAY ==
[2024-02-23 11:20] LABS: % Basophils 0.3 % (0-2); % Eosinophils 5.3 % (0-6); % Immature Granulocytes 0.3 % (0-0.5); % Lymphocytes 19.2 % (20.5-51.1); % Monocytes 12.7 % (1.7-9.3); % Neutrophils 62.2 % (42.2-75.2); Absolute Eosinophils 0.5 10^3/uL (0-0.7); Absolute Lymphocytes 1.8 10^3/uL (1.2-3.4); Absolute Monocytes 1.2 10^3/uL (0.1-0.6); Absolute Neutrophils 5.8 10^3/uL (1.4-6.5); Hematocrit 36.4 % (39.0-52.0); Hemoglobin 12.1 g/dL (13.0-18.0); Mean Corp Hgb Conc. 33.2 g/dL (33.0-37.0); Mean Corpuscular Hgb 29.1 pg (27.0-31.0); Mean Corpuscular Volume 87.5 fL (80.0-94.0); Mean Platelet Volume 10.7 fL (7.4-10.4); Nucleated Red Blood Cells % 0 % (-); Platelet Count 279 10^3/uL (130-400); Red Blood Cell Count 4.16 10^6/uL (4.70-6.10); Red Cell Dist. Width 14.6 % (11.5-14.5); White Blood Cell Count 9.2 10^3/uL (4.8-10.8)
[2024-02-23 11:40] LABS: Urine Albumin Negative (Neg - Trace); Urine Bilirubin Negative (Negative); Urine Character Clear (Clear); Urine Color Yellow; Urine Glucose Negative (Negative); Urine Ketone Negative (Negative); Urine Leukocyte Negative (Negative); Urine Nitrite Negative (Negative); Urine Occult Blood Negative (Negative); Urine Urobilinogen Negative (Neg - 1+)
== END ==
LOC: OLABWPC 10:38
PROVIDERS: ATTENDING PHYSICIAN Internal Medicine Geriatric Medicine
DX: R26.9 Unspecified abnormalities of gait and mobility (principal)
CPT/HCPCS: 36415; 81003; 85025

== ENCOUNTER 2024-02-26 04:42 | Emergency (ER) | payer MEDICARE, SELFPAY ==
[2024-02-26 04:45] VITALS: BMI 26.6
[2024-02-26 04:47] VITALS: BP 181/98
--- NOTE | 2024-02-26 05:55 | ED.GENMED ---
History of Present Illness
General
Chief Complaint: Fall
Source: patient
Time Seen by Provider: 02/26/24 05:00
Travel History
Have you had any contact with someone who has COVID-19?: No
Do you have any symptoms of coronavirus? Fever > 100 degrees, chills, cough, shortness of breath, sore throat, loss of taste or smell, muscle aches, or headache?: No
History of Present Illness
History of Present Illness:
This patient is an 84-year-old male presents emergency department after being found on the floor of the facility where he lives. He states that he was having a dream, and got confused which caused him to fall to the floor. He does not believe he
hit his head and denies loss of consciousness. His only complaint is that of low back pain while being transported by ambulance and which is now resolved. As per EMS, patient's vital signs were stable on transport without any signs of injury.
Patient denies any complaints here at this time. He denies headache, chest pain, shortness of breath.
Past History
Past History
ED Past Medical History: Arrthythmia (atrial fib,, SVT), Asthma, Cancer (Prostate CA, Skin ), GERD, Valvular disease and Other (Cellulitis, hypotension. Parkinson's disease, PNA ,Sleep apnea, )
ED Past Surgical History: None, Cardiac (Ablation), Orthopedic (Hip replacement X2 right, Left meniscus repair), Tonsilectomy, Urological (Vasectomy) and Other (Hernia repair, Cataracts, Lymph nodes removed left arm)
Patient has exhibited threatening behavior?: No
Social History
Tobacco: Non-smoker
Alcohol: None
Drug: None
Personal:
Living: prison ([place])
Employment: Retired
Phy Exam
Physical Exam
Physical Exam:
GENERAL: Alert , in no apparent distress
EYE: pupils equal and reactive
NECK: Supple, no significant adenopathy, no midline tenderness.
ENT: o/p clr, mmm, no signs of head or facial injury.
CARDIAC: Regular rate and rhythm .
LUNGS: Clear breath sounds bilaterally, no acute respiratory distress, no wheezes/rales/rhonchi
ABDOMEN: Soft, without focal tenderness, no r/g, no cvat
NEUROLOGICAL: Alert and oriented, no focal neuro deficits
SKIN: Warm and dry, skin intact.
MUSCULOSKELETAL: bilat le edema, well perfused.
PSYCH: Normal and appropriate interaction.
Course
Orders/Labs/Results
Orders:
Orders
02/26/24 05:34
CT Head W/o Iv Contrast Urgent
Comment:
Reason For Exam: FALL
Vital Signs
Initial and Last Documented VS:
Initial Vital Signs
Pulse Resp Pulse Ox
64 18 96
02/26/24 04:45 02/26/24 04:45 02/26/24 04:45
Last Documented Vital Signs
Pulse Resp BP Pulse Ox
64 18 181/98 96
02/26/24 04:45 02/26/24 04:45 02/26/24 04:47 02/26/24 04:48
*Critical Care Note
Total Time (30-74mins, 75-104mins- exclusive of procedures): Not Applicable
Update Note
Update Note:
Patient presents to the Emergency Department with ___status post fall
Number and Complexity of Problems Addressed at the Encounter
� Chronic conditions affecting care:
� Acute Exacerbation and/or Progression of Chronic Illness:
� Differential Diagnosis includes: But not limited to closed head injury, fracture, etc.
Amount and/or Complexity of Data to be Reviewed and Analyzed
� I performed an independent evaluation of and my interpretation is:
EKG:
CT: Read by vision 'no hemorrhage or other acute intracranial abnormality. Sequela of chronic microvascular disease. Global parenchymal volume loss.)
Xrays:
Laboratory Studies:
Other:
� Review of other/old records reveals:
� Clinical information was obtained by an independent historian:
� Prescriptions/Medications Considered but not given:
� Further testing considered but not performed:
Risk of Complications and/or Morbidity or Mortality of Patient Management
� Social determinants of health affecting care:
� Discussion with other providers (PCP, Hospitalists, Consultants, etc):
� Escalation of care including admission/observation vs risk of discharge considered: 6:[address], no signs of head or facial injury on exam here, no signs of extremity injury, patient without complaints, stable for
discharge.
ED Attending Note
-
Portions of this chart may have been created with voice recognition software.� Occasional wrong word or��sound alike� substitutions may have occurred due to the inherent limitations of voice recognition software.
Discharge Plan
Departure
Patient Disposition: Alf/SNF
Date of Disposition: 02/26/24
Time of Disposition: 06:58
Discharge Problem:
Fall
Instructions: Preventing falls in adults, BLOOD PRESSURE
Prescriptions:
No Action
ascorbic acid (vitamin C) [Vitamin C] 500 MG tablet
1,000 mg PO DAILY
Saccharomyces boulardii 250 MG capsule
250 mg PO DAILY
zinc gluconate 30 MG tablet
30 mg PO DAILY
multivitamin with folic acid [Tab-A-Jasvir] 1 TABLET tablet
1 tab PO DAILY
carbidopa-levodopa 25-100 mg tablet
1 tab PO BID@1200,1600
red yeast rice 600 mg Capsule
600 mg PO DAILY
Gocovri 137 mg capsule,extended release 24hr
137 mg PO HS
Ongentys 50 mg capsule
50 mg PO DAILY
acetaminophen 325 mg Tablet
650 mg PO Q6H PRN (Reason: mild pain/temp>100F)
aspirin 81 mg Tablet,Delayed Release (Dr/Ec)
81 mg PO DAILY
methenamine hippurate 1 gram Tablet
1 g PO BID
magnesium hydroxide [Milk of Magnesia] 400 mg/5 mL Suspension
30 ml PO DAILY PRN (Reason: if no bm x 2 days)
bisacodyl [Dulcolax (bisacodyl)] 10 mg Suppository
10 mg MD DAILY PRN (Reason: if no bm x 3 days)
Fleet Enema 19-7 gram/118 mL Enema
118 ml MD DAILY PRN (Reason: if no bm x 4 days)
vitamin B complex [B-50 Complex] Tablet
1 tab PO DAILY
magnesium 250 mg Tablet
250 mg PO DAILY
carbidopa-levodopa 25-100 mg tablet
2 tab PO DAILY
doxycycline hyclate 100 mg tablet
100 mg PO HS
midodrine 10 mg Tablet
5 mg PO DAILY@1400
Rx Instructions:
afternoon
midodrine 10 mg Tablet
5 mg PO QPM
Rx Instructions:
*HOLD FOR SBP OVER 136*
cholecalciferol (vitamin D3) [Vitamin D3] 25 mcg (1,000 unit) Tablet
25 mcg PO DAILY
Misc Natural Products
1 cap PO DAILY
Rx Instructions:
Mycobotanicals brain
Ubiquinol
100 mg PO DAILY@1400
Rx Instructions:
afternoon
Referrals:
Fabian Harp MD [Family Provider] - As needed
Activity Restrictions/Additional Instructions:
IF YOU DEVELOP DIZZINESS, SEVERE HEADACHE, CHEST PAIN, TROUBLE BREATHING, OR OTHER WORRISOME SIGNS, GO TO THE ER IMMEDIATELY!
Interventions
Interventions:
*Risk Screen - Suicide Last Done: 02/26/24 04:45
*General Assessment Last Done: 02/26/24 04:45
*Neglect/Abuse Screening Last Done: 02/26/24 04:45
ED- Fall Risk Assessment Last Done: 02/26/24 04:45
*ED COVID-19 Vaccine History Last Done: 02/26/24 04:45
ED-Musculoskeletal Assessment Last Done: 02/26/24 04:45
ED- Neurological Assessment Last Done: 02/26/24 04:45
ED-Skin Assessment Last Done: 02/26/24 04:45
Discharge Date and Time
Print Language: YORUBA
[2024-02-26 10:14] VITALS: BP 147/86
== END 2024-02-26 12:10 ==
LOC: EMR 04:42
PROVIDERS: EMERGENCY PHYSICIAN Emergency Medicine; FAMILY PHYSICIAN Internal Medicine Geriatric Medicine
DX: M54.50 Low back pain, unspecified (principal); W19.XXXA Unspecified fall, initial encounter; R60.0 Localized edema; I48.91 Unspecified atrial fibrillation; J45.909 Unspecified asthma, uncomplicated; G47.30 Sleep apnea, unspecified; G20.A1 Parkinson's disease without dyskinesia, without mention of fluctuations; I47.10 Supraventricular tachycardia, unspecified; K21.9 Gastro-esophageal reflux disease without esophagitis; Z96.641 Presence of right artificial hip joint; Z85.46 Personal history of malignant neoplasm of prostate; Z85.828 Personal history of other malignant neoplasm of skin; Z87.01 Personal history of pneumonia (recurrent); Z79.82 Long term (current) use of aspirin; Z88.5 Allergy status to narcotic agent; Z88.8 Allergy status to other drugs, medicaments and biological substances
CPT/HCPCS: 99284; 70450

== ENCOUNTER 2024-03-04 23:16 | Emergency (ER) | payer MEDICARE, SELFPAY ==
[2024-03-04 23:17] VITALS: BMI 26.9
[2024-03-04 23:18] VITALS: BP 158/88
--- NOTE | 2024-03-05 00:59 | ED.GENMED ---
History of Present Illness
General
Chief Complaint: Fall
Source: patient
Exam Limitations: none
Time Seen by Provider: 03/04/24 23:21
Travel History
Have you had any contact with someone who has COVID-19?: No
Do you have any symptoms of coronavirus? Fever > 100 degrees, chills, cough, shortness of breath, sore throat, loss of taste or smell, muscle aches, or headache?: No
History of Present Illness
History of Present Illness:
84-year-old male with history of Parkinson's who presents with left lower rib pain. Patient denies shortness of breath. States he fell against a piece of furniture. Denies head injury. No neck pain. No back pain. No numbness or tingling.
Reports left lower chest wall pain when he moves or laughs.
Past History
Past History
ED Past Medical History: Arrthythmia (atrial fib,, SVT), Asthma, Cancer (Prostate CA, Skin ), GERD, Valvular disease and Other (Cellulitis, hypotension. Parkinson's disease, PNA ,Sleep apnea, )
ED Past Surgical History: None, Cardiac (Ablation), Orthopedic (Hip replacement X2 right, Left meniscus repair), Tonsilectomy, Urological (Vasectomy) and Other (Hernia repair, Cataracts, Lymph nodes removed left arm)
Patient has exhibited threatening behavior?: No
Social History
Tobacco: Non-smoker
Alcohol: None
Drug: None
Personal:
Living: detention ([place])
Employment: Retired
Phy Exam
Physical Exam
Physical Exam:
CONSTITUTIONAL Vital signs reviewed, Patient alert and oriented to person, place. Well-appearing
HEAD atraumatic, normocephalic.
EYES eyelids normal to inspection, Extraocular muscles intact, Conjunctiva normal, Sclera normal.
NECK normal range of motion, Trachea midline, no jugular venous distention. No midline tenderness.
Chest mild tenderness noted to the left lower lateral chest wall. No crepitus. No ecchymosis. No swelling.
RESP no respiratory distress
BACK No obvious deformities, no midline tenderness
UPPER EXTREMITY Gross Range of motion normal, gross motor strength normal
LOWER EXTREMITY Gross range of motion normal, Gross motor strength normal
NEURO Speech normal, No focal motor deficits include, Damar coma scale 15, Cranial Nerves intact to screening exam.
SKIN Skin warm, dry, and normal in color.
Course
Orders/Labs/Results
Orders:
Orders
03/05/24 00:00
CR Ribs-left 3 Vw W/pa Chest Urgent
Reason For Exam: fall
Vital Signs
Initial and Last Documented VS:
Initial Vital Signs
Temp Pulse Resp BP Pulse Ox
97.6 F 68 16 158/88 98
03/04/24 23:18 03/04/24 23:18 03/04/24 23:18 03/04/24 23:18 03/04/24 23:18
Last Documented Vital Signs
Temp Pulse Resp BP Pulse Ox
97.6 F 68 16 158/88 95
03/04/24 23:18 03/04/24 23:18 03/04/24 23:18 03/04/24 23:18 03/05/24 00:02
MDM/Problems Addressed
MDM/Problems Addressed:
Chest wall injury
*Radiology
Radiology exam reviewed: all reviewed NAD by ED Provider
*Pulse Oximetry
Patient hypoxic: no
*Critical Care Note
Total Time (30-74mins, 75-104mins- exclusive of procedures): Not Applicable
Data Reviewed
Source: patient
Further Testing Considered But Not Given:
considered CT head but no evidence of injury
ED Attending Note
-
Portions of this chart may have been created with voice recognition software.� Occasional wrong word or��sound alike� substitutions may have occurred due to the inherent limitations of voice recognition software.
Discharge Plan
Departure
Patient Disposition: Home (Routine Discharge)
Date of Disposition: 03/05/24
Time of Disposition: 01:03
Patient with high blood pressure during this ER visit?: Yes
Discharge Problem:
Chest wall injury
Instructions: Rib Fracture or Bruised Rib ED, BLOOD PRESSURE
Prescriptions:
No Action
ascorbic acid (vitamin C) [Vitamin C] 500 MG tablet
1,000 mg PO DAILY
Saccharomyces boulardii 250 MG capsule
250 mg PO DAILY
zinc gluconate 30 MG tablet
30 mg PO DAILY
multivitamin with folic acid [Tab-A-Jasvir] 1 TABLET tablet
1 tab PO DAILY
carbidopa-levodopa 25-100 mg tablet
1 tab PO BID@1200,1600
red yeast rice 600 mg Capsule
600 mg PO DAILY
Gocovri 137 mg capsule,extended release 24hr
137 mg PO HS
Ongentys 50 mg capsule
50 mg PO DAILY
acetaminophen 325 mg Tablet
650 mg PO Q6H PRN (Reason: mild pain/temp>100F)
aspirin 81 mg Tablet,Delayed Release (Dr/Ec)
81 mg PO DAILY
methenamine hippurate 1 gram Tablet
1 g PO BID
magnesium hydroxide [Milk of Magnesia] 400 mg/5 mL Suspension
30 ml PO DAILY PRN (Reason: if no bm x 2 days)
bisacodyl [Dulcolax (bisacodyl)] 10 mg Suppository
10 mg DE DAILY PRN (Reason: if no bm x 3 days)
Fleet Enema 19-7 gram/118 mL Enema
118 ml DE DAILY PRN (Reason: if no bm x 4 days)
vitamin B complex [B-50 Complex] Tablet
1 tab PO DAILY
magnesium 250 mg Tablet
250 mg PO DAILY
carbidopa-levodopa 25-100 mg tablet
2 tab PO DAILY
doxycycline hyclate 100 mg tablet
100 mg PO HS
midodrine 10 mg Tablet
5 mg PO DAILY@1400
Rx Instructions:
afternoon
midodrine 10 mg Tablet
5 mg PO QPM
Rx Instructions:
*HOLD FOR SBP OVER 136*
cholecalciferol (vitamin D3) [Vitamin D3] 25 mcg (1,000 unit) Tablet
25 mcg PO DAILY
Misc Natural Products
1 cap PO DAILY
Rx Instructions:
Mycobotanicals brain
Ubiquinol
100 mg PO DAILY@1400
Rx Instructions:
afternoon
Referrals:
UNKNOWN - PT DOES,NOT KNOW [Family Provider] -
Activity Restrictions/Additional Instructions:
Please use incentive spirometry 10x per hour.
Return immediately for shortness of breath, worsening pain, abdominal pain or any other concerns.
Please see your doctor in the next 3 days for follow-up and re-evaluation.
Interventions
Interventions:
*Risk Screen - Suicide Last Done: 03/04/24 23:18
*General Assessment Last Done: 03/04/24 23:18
*Neglect/Abuse Screening Last Done: 03/04/24 23:18
*ED COVID-19 Vaccine History Last Done: 03/04/24 23:18
ED-Musculoskeletal Assessment Last Done: 03/04/24 23:27
ED- Neurological Assessment Last Done: 03/04/24 23:27
ED-Skin Assessment Last Done: 03/04/24 23:27
Discharge Date and Time
Print Language: NIGERIEN
[2024-03-05 04:17] VITALS: BP 152/98
== END 2024-03-05 06:25 | disposition home or self-care (01) ==
LOC: EMR 23:16
PROVIDERS: EMERGENCY PHYSICIAN Emergency Medicine
DX: S29.9XXA Unspecified injury of thorax, initial encounter (principal); W19.XXXA Unspecified fall, initial encounter; I48.91 Unspecified atrial fibrillation; I47.10 Supraventricular tachycardia, unspecified; J45.909 Unspecified asthma, uncomplicated; K21.9 Gastro-esophageal reflux disease without esophagitis; I38 Endocarditis, valve unspecified; G20.A1 Parkinson's disease without dyskinesia, without mention of fluctuations; G47.30 Sleep apnea, unspecified; Z85.46 Personal history of malignant neoplasm of prostate
CPT/HCPCS: 99283; 71101

== ENCOUNTER 2024-03-11 17:53 | Emergency (ER) | payer MEDICARE, SELFPAY ==
[2024-03-11 17:59] VITALS: BMI 26.3
[2024-03-11 18:00] VITALS: BP 154/75
[2024-03-11 20:01] VITALS: BP 168/93
[2024-03-11 21:00] VITALS: BP 172/86
--- NOTE | 2024-03-11 21:53 | ED.ATTNOTE ---
ED Attending Note
ED Attending Note
Patient seen and examined by attending physician: Yes
I performed the substantive portion of visit, reviewed & personally made and approve the management plan that is documented in note by myself or KE.: Yes
ED Attending Note:
Patient personally evaluated by me at 7:30 PM. Patient is fully awake and alert. He denies any significant headache. He denies nausea and vomiting. He denies visual changes. Patient reports that due to his Parkinson's, he frequently falls and
gets dizzy. He is not concerned about any worsening dizziness. He denies any recent fever, nausea and vomiting.
-
Portions of this chart may have been created with voice recognition software.� Occasional wrong word or��sound alike� substitutions may have occurred due to the inherent limitations of voice recognition software.
== END 2024-03-11 21:20 | disposition home or self-care (01) ==
LOC: EMR 17:53
PROVIDERS: EMERGENCY PHYSICIAN Emergency Medicine; FAMILY PHYSICIAN Internal Medicine Geriatric Medicine
DX: S09.90XA Unspecified injury of head, initial encounter (principal); W19.XXXA Unspecified fall, initial encounter
CPT/HCPCS: 99284; 70450

== ENCOUNTER → 2024-03-16 15:55 | Outpatient (REF) | payer MEDICARE, SELFPAY | LOC: RCS 15:55 | PROVIDERS: ATTENDING PHYSICIAN Internal Medicine Cardiovascular Disease; FAMILY PHYSICIAN Internal Medicine Geriatric Medicine | DX: I48.0 Paroxysmal atrial fibrillation (principal) | CPT/HCPCS: 93308 ==

== ENCOUNTER 2024-03-27 11:54 | Emergency (ER) | payer MEDICARE, SELFPAY ==
[2024-03-27] VITALS (8 sets, daily range): BP systolic 143–187; BP diastolic 86–112
--- NOTE | 2024-03-27 12:41 | ED.GENMED ---
History of Present Illness
General
Chief Complaint: Cough
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
Time Seen by Provider: 03/27/24 12:38
History of Present Illness
History of Present Illness:
84-year-old male from [facility], with history of Parkinson's, dementia, balance problems, A-fib, on aspirin only, low blood pressure on midodrine, GERD presents from [facility] for a cough.
Spoke with Georgiana who states Miky was history of falls, Parkinson's, he was very lethargic and difficult to arouse, all his meds and foods held due to fear of aspiration, his speech was garbled, no fever,, blood pressure is 123/90 which is high for
him as he is on midodrine for hypotension, started on new medication on 03/23 Nuplazid 10- mg for Parkinson's Hallucinations. Takes 12-13 herbal supplements his daughter has him on.
Georgiana states pt is usually alert, ambulates with walker with assistance but frequently will do it without assist and therefore, occasional falls. Here for change in mental status. NOT cough.
Georgiana states pt is DNR but daughter wanted him sent here for evaluation of neuro status.
Pt seems appropriate at times and not at others. Denies chest pain, abdominal pain. He follows commands.
Past History
Past History
ED Past Medical History: Arrthythmia (atrial fib,, SVT), Asthma, Cancer (Prostate CA, Skin ), GERD, Valvular disease and Other (Cellulitis, hypotension. Parkinson's disease, PNA ,Sleep apnea, )
ED Past Surgical History: None, Cardiac (Ablation), Orthopedic (Hip replacement X2 right, Left meniscus repair), Tonsilectomy, Urological (Vasectomy) and Other (Hernia repair, Cataracts, Lymph nodes removed left arm)
Patient has exhibited threatening behavior?: No
Social History
Tobacco: Non-smoker
Alcohol: None
Drug: None
Personal:
Living: [facility] ([facility])
Employment: Retired
Review of Systems
Review of Systems
Allergies reviewed?: Yes
Unable to obtain full review of systems at this time due to: dementia
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
All Other Systems: ROS reviewed and negative except as documented in HPI and ROS
Constitutional: Denies fever
Respiratory: Reports cough; Denies trouble breathing
ABD/GI: Denies vomiting, diarrhea, bloody stools or black stools
: Reports incontinence
Musculoskeletal: Denies edema
Skin: Reports no symptoms
Phy Exam
Physical Exam
Physical Exam:
GENERAL: No acute distress. Lethargic
CONSTITUTIONAL: Afebrile.
EYES: PERRL, conjunctivae normal
ENMT: moist mucus membranes
RESPIRATORY: Regular respirations, nonlabored, lungs clear.
CARDIOVASCULAR: Regular rate and rhythm, no murmurs, no rubs.
GI: Soft, nontender, normal BS
MUSCULOSKELETAL: Moves with ease. Well perfused.
SKIN: Warm, dry, pink
PSYCH: Lethargic. Well kept. Just repeats what speaker says
NEUROLOGIC: Awake, alert and oriented. No focal neurological deficits
Course
Orders/Labs/Results
Orders:
Orders
03/27/24 12:07
Electrocardiogram (*1) Urgent
Reason for Study: Hypertension, Benign
03/27/24 12:08
EKG- Treatment ONCE
03/27/24 12:32
CXR2 [CR Chest - 2 Views ] Urgent
Comment:
Reason For Exam: cough
03/27/24 12:35
CMP [Comprehensive Metabolic Panel] Urgent
Complete Blood Count/With Diff Urgent
Lactic Acid Urgent
Blood Culture Routine
GILLIAN Source: Blood/Venous
Specimen Description:
Date Specimen was Collected: 03/27/24
Time Specimen was Collected: 12:33
03/27/24 14:33
Urinalysis Reflex To Culture Urgent
Date Specimen was Collected: 03/27/24
Time Specimen was Collected: 14:31
Urine Microscopic Reflex Cult Urgent
03/27/24 14:55
CT Head W/o Iv Contrast Urgent
Comment:
Reason For Exam: change in mental state
03/27/24 16:43
0.9% Sodium Chloride 250 ml [Nss] 250 ml IV BOLUS
Abnormal Lab Results
03/27/24 03/27/24
12:35 14:33
Abs Immat Gran (auto) 0.1 H 10^3/uL
(0-0.05)
Absolute Neuts (auto) 7.4 H 10^3/uL
(1.4-6.5)
Absolute Monos (auto) 1.2 H 10^3/uL
(0.1-0.6)
Lymphocytes % 11.3 L %
(20.5-51.1)
Monocytes % 12.1 H %
(1.7-9.3)
Glucose 102 H mg/dl
(70-99)
Alkaline Phosphatase 161 H U/L
(38-126)
Ur Occult Blood Reflex Trace A
(Negative)
Urine RBC 3-6 A /HPF
(0-2)
Urine Bacteria (Reflex) Few A
(Negative)
03/27/24 12:35
03/27/24 12:35
Vital Signs
Initial and Last Documented VS:
Initial Vital Signs
Temp Pulse Resp BP Pulse Ox
98.3 F 64 16 174/97 97
03/27/24 12:03 03/27/24 12:03 03/27/24 12:03 03/27/24 12:03 03/27/24 12:03
Last Documented Vital Signs
Temp Pulse Resp BP Pulse Ox
98.3 F 68 16 187/112 95
03/27/24 12:03 03/27/24 14:04 03/27/24 14:04 03/27/24 16:00 03/27/24 16:53
Termite Helper consulted with Physician
Termite Helper consulted with physician?: Yes
Name of Physician Consulted: Simi
MDM/Problems Addressed
Differential Diagnosis Includes:
CVA, dehydration, UTI, PNA, side effect from new medication
MDM/Problems Addressed:
84-year-old male from [facility], with history of Parkinson's, dementia, balance problems, A-fib, on aspirin only, low blood pressure on midodrine, GERD presents from [facility] for a cough.
Spoke with Georgiana who states Miky was history of falls, Parkinson's, he was very lethargic and difficult to arouse, all his meds and foods held due to fear of aspiration, his speech was garbled, no fever,, blood pressure is 123/90 which is high for
him as he is on midodrine for hypotension, started on new medication on 03/23 Nuplazid 10- mg for Parkinson's Hallucinations. Takes 12-13 herbal supplements his daughter has him on.
Georgiana states pt is usually alert, ambulates with walker with assistance but frequently will do it without assist and therefore, occasional falls. Here for change in mental status. NOT cough.
Georgiana states pt is DNR but daughter wanted him sent here for evaluation of neuro status.
Pt seems appropriate at times and not at others. Denies chest pain, abdominal pain. He follows commands.
Globally deficient, no focal neurological deficits, follows commands weakly at times
CBC with no clinically significant abnormality
CMP unremarkable
EKG: Sinus rhythm with first-degree AV block, PVCs
Chest Xray radiology report read: IMPRESSION:
1. Small left pleural effusion. Left lower lobe airspace disease may also be present.
2. Small hiatal hernia.
3:15 PM:
UA negative
4:[address] showing nothing acute
Suspect side effect from the Nuplazid
Plan: DC back to [place]
DC Midodrine for BP >110/60
Stop Nuplazid until you speak with the doctor who prescribed it to discuss possible side effect.
Re evaluate mental state in 1-2 days after Nuplazid stopped
Spoke with daughter Mariya, mj and she agrees with plan. She will speak with PCP at [facility]
Copy of all reports, EKG, CXR, Head CT and labs sent with pt to [facility]
Case discussed with Dr. Belcher who agrees with assessment and plan
*EKG
EKG Intrepretation Date: 03/27/24
Interpretation: abnormal
Comparison EKG: changes noted (now with PVC's)
Heart Rate: 64
Rate: normal
Rhythm: sinus and PVC's
[place]aca: normal axis
Interval: first degree heart block
QRS Pattern: normal QRS
Ischemia: no ischemia
*Critical Care Note
Total Time (30-74mins, 75-104mins- exclusive of procedures): Not Applicable
ED Attending Note
-
Portions of this chart may have been created with voice recognition software.� Occasional wrong word or��sound alike� substitutions may have occurred due to the inherent limitations of voice recognition software.
Discharge Plan
Departure
Patient Disposition: [facility]/SNF
Date of Disposition: 03/27/24
Time of Disposition: 16:52
Patient with high blood pressure during this ER visit?: No
Condition: Fair
Discharge Problem:
Altered mental state
Instructions: Altered Mental Status (DC)
Prescriptions:
No Action
ascorbic acid (vitamin C) [Vitamin C] 500 MG tablet
1,000 mg PO DAILY
Saccharomyces boulardii 250 MG capsule
250 mg PO DAILY
zinc gluconate 30 MG tablet
30 mg PO DAILY
multivitamin with folic acid [Tab-A-Jasvir] 1 TABLET tablet
1 tab PO DAILY
carbidopa-levodopa 25-100 mg tablet
1 tab PO BID@1200,1600
red yeast rice 600 mg Capsule
600 mg PO DAILY
Gocovri 137 mg capsule,extended release 24hr
137 mg PO HS
Ongentys 50 mg capsule
50 mg PO DAILY
acetaminophen 325 mg Tablet
650 mg PO Q6H PRN (Reason: mild pain/temp>100F)
aspirin 81 mg Tablet,Delayed Release (Dr/Ec)
81 mg PO DAILY
methenamine hippurate 1 gram Tablet
1 g PO BID
magnesium hydroxide [Milk of Magnesia] 400 mg/5 mL Suspension
30 ml PO DAILY PRN (Reason: if no bm x 2 days)
bisacodyl [Dulcolax (bisacodyl)] 10 mg Suppository
10 mg CA DAILY PRN (Reason: if no bm x 3 days)
Fleet Enema 19-7 gram/118 mL Enema
118 ml CA DAILY PRN (Reason: if no bm x 4 days)
vitamin B complex [B-50 Complex] Tablet
1 tab PO DAILY
magnesium 250 mg Tablet
250 mg PO DAILY
carbidopa-levodopa 25-100 mg tablet
2 tab PO DAILY
doxycycline hyclate 100 mg tablet
100 mg PO HS
midodrine 10 mg Tablet
5 mg PO DAILY@1400
Rx Instructions:
afternoon
midodrine 10 mg Tablet
5 mg PO QPM
Rx Instructions:
*HOLD FOR SBP OVER 136*
cholecalciferol (vitamin D3) [Vitamin D3] 25 mcg (1,000 unit) Tablet
25 mcg PO DAILY
Misc Natural Products
1 cap PO DAILY
Rx Instructions:
Mycobotanicals brain
Ubiquinol
100 mg PO DAILY@1400
Rx Instructions:
afternoon
Referrals:
Wiley Quijano MD [Family Provider] - Follow up in 2-3 days
Activity Restrictions/Additional Instructions:
Today's workup shows nothing acute.
Copy of all reports sent back with patient
Change in mental state could be side effect from the Nuplazid
DC Midodrine for BP >110/60
Stop Nuplazid until you speak with the doctor who prescribed it to discuss possible side effect.
Re evaluate mental state in 1-2 days after Nuplazid stopped
Daughter Pat updated on findings and plan of care.
Interventions
Interventions:
*Risk Screen - Suicide Last Done: 03/27/24 18:15
*General Assessment Last Done: 03/27/24 18:15
*Neglect/Abuse Screening Last Done: 03/27/24 18:15
ED- Fall Risk Assessment Last Done: 03/27/24 18:15
*ED COVID-19 Vaccine History Last Done: 03/27/24 18:15
*Nursing Disposition Last Done: 03/27/24 19:51
ED- Pulmonary Assessment Last Done: 03/27/24 12:38
ED-Psychological Assessment Last Done: 03/27/24 18:30
ED- Neurological Assessment Last Done: 03/27/24 12:38
ED- Cardiac Assessment Last Done: 03/27/24 18:30
ED Swallowing Screen Last Done: 03/27/24 18:15
Discharge Date and Time
Discharge Date/Time: 03/27/24 19:52
Print Language: NEPALI
[2024-03-27 12:44] LABS: % Basophils 0.3 % (0-2); % Eosinophils 4.2 % (0-6); % Immature Granulocytes 0.5 % (0-0.5); % Lymphocytes 11.3 % (20.5-51.1); % Monocytes 12.1 % (1.7-9.3); % Neutrophils 71.6 % (42.2-75.2); Absolute Eosinophils 0.4 10^3/uL (0-0.7); Absolute Immature Granulocytes 0.1 10^3/uL (0-0.05); Absolute Lymphocytes 1.2 10^3/uL (1.2-3.4); Absolute Monocytes 1.2 10^3/uL (0.1-0.6); Absolute Neutrophils 7.4 10^3/uL (1.4-6.5); Hemoglobin 13.9 g/dL (13.0-18.0); Mean Corp Hgb Conc. 33.9 g/dL (33.0-37.0); Mean Corpuscular Hgb 29.6 pg (27.0-31.0); Mean Corpuscular Volume 87.2 fL (80.0-94.0); Mean Platelet Volume 9.4 fL (7.4-10.4); Nucleated Red Blood Cells % 0 % (-); Platelet Count 306 10^3/uL (130-400); White Blood Cell Count 10.3 10^3/uL (4.8-10.8)
[2024-03-27 12:57] LABS: Lactic Acid 1.2 mmol/L (0.7-2.0)
[2024-03-27 12:58] LABS: ALT (SGPT) 28 U/L (0-50); AST (SGOT) 17 U/L (17-59); Albumin 4.3 g/dl (3.5-5.0); Alkaline Phosphatase 161 U/L (38-126); Blood Urea Nitrogen 20 mg/dl (9-20); Calcium 10.1 mg/dl (8.4-10.2); Carbon Dioxide 28 mmol/L (22-30); Chloride 101 mmol/L (98-107); Glucose 102 mg/dl (70-99); Sodium 136 mmol/L (135-145); Total Bilirubin 0.9 mg/dl (0.2-1.3); Total Protein 7.2 g/dl (6.3-8.2); eGFR > 60.00
[2024-03-27 13:07] LABS: Potassium 4.5 mmol/L (3.5-5.1)
[2024-03-27 15:07] LABS: Urine Albumin Negative (Neg - Trace); Urine Bilirubin Negative (Negative); Urine Character Clear (Clear); Urine Color Yellow; Urine Glucose Negative (Negative); Urine Ketone Negative (Negative); Urine Leukocyte Negative (Negative); Urine Nitrite Negative (Negative); Urine Occult Blood Trace (Negative); Urine Urobilinogen Negative (Neg - 1+)
[2024-03-27 15:21] LABS: Urine Bacteria Few (Negative); Urine White Cell 0-2 /HPF (0-5)
[2024-03-27] MEDS: NSS 250 IV (16:56)
== END 2024-03-27 19:52 ==
LOC: EMR 11:54
PROVIDERS: Registered Nurse; EMERGENCY PHYSICIAN Emergency Medicine; FAMILY PHYSICIAN Family Medicine
DX: R41.82 Altered mental status, unspecified (principal); R05.9 Cough, unspecified; R53.83 Other fatigue; I44.0 Atrioventricular block, first degree; J90 Pleural effusion, not elsewhere classified; K44.9 Diaphragmatic hernia without obstruction or gangrene; I47.10 Supraventricular tachycardia, unspecified; F03.90 Unspecified dementia, unspecified severity, without behavioral disturbance, psychotic disturbance, mood disturbance, and anxiety; G20.A1 Parkinson's disease without dyskinesia, without mention of fluctuations; I48.91 Unspecified atrial fibrillation; K21.9 Gastro-esophageal reflux disease without esophagitis; J45.909 Unspecified asthma, uncomplicated; G47.30 Sleep apnea, unspecified; Z91.81 History of falling; Z79.82 Long term (current) use of aspirin; Z96.641 Presence of right artificial hip joint; Z85.46 Personal history of malignant neoplasm of prostate; Z85.828 Personal history of other malignant neoplasm of skin; Z87.01 Personal history of pneumonia (recurrent); Z88.5 Allergy status to narcotic agent; Z88.8 Allergy status to other drugs, medicaments and biological substances
CPT/HCPCS: 99285; 51701; 70450; 71046; 80053; 81003; 81015; 83605; 85025; 87040; 93005

== ENCOUNTER → 2024-05-16 10:32 | Outpatient (REF) | payer MEDICARE, SELFPAY ==
[2024-05-16 12:33] LABS: PSA, Total - Diagnostic 3.59 ng/ml (0.0-4.0)
== END ==
LOC: OLABWPC 10:32
PROVIDERS: ATTENDING PHYSICIAN Family Medicine
DX: Z85.46 Personal history of malignant neoplasm of prostate (principal)
CPT/HCPCS: 36415; 84153

== ENCOUNTER → 2024-06-02 10:28 | Outpatient (REF) | payer MEDICARE, SELFPAY ==
[2024-06-02 10:47] LABS: Hematocrit 35.5 % (39.0-52.0); Hemoglobin 11.9 g/dL (13.0-18.0); Mean Corp Hgb Conc. 33.5 g/dL (33.0-37.0); Mean Corpuscular Hgb 30.4 pg (27.0-31.0); Mean Corpuscular Volume 90.6 fL (80.0-94.0); Mean Platelet Volume 10.4 fL (7.4-10.4); Platelet Count 264 10^3/uL (130-400); Red Blood Cell Count 3.92 10^6/uL (4.70-6.10); Red Cell Dist. Width 13.8 % (11.5-14.5); White Blood Cell Count 9.6 10^3/uL (4.8-10.8)
[2024-06-02 13:09] LABS: ALT (SGPT) 18 U/L (0-50); AST (SGOT) 8 U/L (17-59); Albumin 3.6 g/dl (3.5-5.0); Alkaline Phosphatase 112 U/L (38-126); Blood Urea Nitrogen 29 mg/dl (9-20); Calcium 9.8 mg/dl (8.4-10.2); Carbon Dioxide 27 mmol/L (22-30); Chloride 104 mmol/L (98-107); Glucose 81 mg/dl (70-99); Potassium 4.4 mmol/L (3.5-5.1); Sodium 141 mmol/L (135-145); Total Bilirubin 0.4 mg/dl (0.2-1.3); eGFR > 60.00
== END ==
LOC: OLABWHC 10:28
PROVIDERS: ATTENDING PHYSICIAN Family Medicine
DX: T84.51XS Infection and inflammatory reaction due to internal right hip prosthesis, sequela (principal); I48.0 Paroxysmal atrial fibrillation; G20.A1 Parkinson's disease without dyskinesia, without mention of fluctuations
CPT/HCPCS: 36415; 80053; 85027

== ENCOUNTER → 2024-08-28 15:19 | Outpatient (REF) | payer MEDICARE, SELFPAY | LOC: OLABWHC 15:19 | PROVIDERS: ATTENDING PHYSICIAN Family Medicine | DX: R19.7 Diarrhea, unspecified (principal) | CPT/HCPCS: 87324; 87449 ==

== ENCOUNTER → 2024-09-04 09:51 | Outpatient (REF) | payer MEDICARE, SELFPAY ==
[2024-09-04 10:30] LABS: Hematocrit 37.5 % (39.0-52.0); Hemoglobin 12.2 g/dL (13.0-18.0); Mean Corp Hgb Conc. 32.5 g/dL (33.0-37.0); Mean Corpuscular Hgb 29.3 pg (27.0-31.0); Mean Corpuscular Volume 89.9 fL (80.0-94.0); Platelet Count 290 10^3/uL (130-400); Red Blood Cell Count 4.17 10^6/uL (4.70-6.10); Red Cell Dist. Width 14.2 % (11.5-14.5); White Blood Cell Count 10.1 10^3/uL (4.8-10.8)
[2024-09-04 10:43] LABS: ALT (SGPT) 22 U/L (0-50); AST (SGOT) 10 U/L (17-59); Albumin 3.8 g/dl (3.5-5.0); Alkaline Phosphatase 104 U/L (38-126); Blood Urea Nitrogen 28 mg/dl (9-20); Calcium 9.7 mg/dl (8.4-10.2); Carbon Dioxide 25 mmol/L (22-30); Chloride 104 mmol/L (98-107); Glucose 92 mg/dl (70-99); Potassium 4.2 mmol/L (3.5-5.1); Sodium 136 mmol/L (135-145); Total Bilirubin 0.6 mg/dl (0.2-1.3); Total Protein 6.4 g/dl (6.3-8.2); eGFR > 60.00
== END ==
LOC: OLABWHC 09:51
PROVIDERS: ATTENDING PHYSICIAN Family Medicine
DX: Z79.82 Long term (current) use of aspirin (principal); I95.1 Orthostatic hypotension
CPT/HCPCS: 36415; 80053; 83735; 85027

== ENCOUNTER → 2024-11-09 11:15 | Outpatient (REF) | payer MEDICARE, SELFPAY ==
[2024-11-09 12:15] LABS: Hematocrit 38.5 % (39.0-52.0); Hemoglobin 12.7 g/dL (13.0-18.0); Mean Corpuscular Hgb 29.3 pg (27.0-31.0); Mean Corpuscular Volume 88.7 fL (80.0-94.0); Mean Platelet Volume 10.4 fL (7.4-10.4); Platelet Count 318 10^3/uL (130-400); Red Blood Cell Count 4.34 10^6/uL (4.70-6.10); Red Cell Dist. Width 14.2 % (11.5-14.5)
[2024-11-09 12:25] LABS: Blood Urea Nitrogen 33 mg/dl (9-20); Calcium 9.7 mg/dl (8.4-10.2); Carbon Dioxide 24 mmol/L (22-30); Chloride 101 mmol/L (98-107); Glucose 88 mg/dl (70-99); Potassium 4.9 mmol/L (3.5-5.1); Sodium 135 mmol/L (135-145); eGFR > 60.00
== END ==
LOC: OLABWHC 11:15
PROVIDERS: ATTENDING PHYSICIAN Family Medicine
DX: I48.0 Paroxysmal atrial fibrillation (principal)
CPT/HCPCS: 36415; 80048; 85027

== ENCOUNTER → 2024-11-20 12:10 | Outpatient (REF) | payer MEDICARE, SELFPAY ==
[2024-11-20 13:35] LABS: PSA, Total - Diagnostic 4.79 ng/ml (0.0-4.0)
== END ==
LOC: OLABWHC 12:10
PROVIDERS: ATTENDING PHYSICIAN Family Medicine
DX: Z85.46 Personal history of malignant neoplasm of prostate (principal)
CPT/HCPCS: 36415; 84153

== ENCOUNTER → 2025-01-03 10:42 | Outpatient (REF) | payer MEDICARE, SELFPAY ==
[2025-01-03 12:47] LABS: Urine Albumin Negative (Neg - Trace); Urine Bilirubin Negative (Negative); Urine Character Clear (Clear); Urine Color Yellow; Urine Glucose Negative (Negative); Urine Ketone Negative (Negative); Urine Leukocyte Negative (Negative); Urine Nitrite Negative (Negative); Urine Occult Blood 1+ (Negative); Urine Specific Gravity 1.015 (<1.030); Urine Urobilinogen Negative (Neg - 1+); Urine pH 6.5 (5.0-9.0)
[2025-01-03 13:53] LABS: Urine Bacteria Few (Negative); Urine Squamous Cell 0-2 /LPF (Few); Urine White Cell 0-2 /HPF (0-5)
== END ==
LOC: OLABWHC 10:42
PROVIDERS: ATTENDING PHYSICIAN Family Medicine
DX: Z87.440 Personal history of urinary (tract) infections (principal)
CPT/HCPCS: 81003; 81015